=== PATIENT | female | born 1955 | race Caucasian/White ===

== ENCOUNTER → 2016-09-02 | Outpatient (CLI) | payer OTHER ==
[~2016-09-02] MED LIST: TYLENOL; TYLENOL #3; VICO5TAB; aleve
--- NOTE | 2016-09-02 14:19 | REPMRS ---
Patient History The patient states she had a clinical breast exam in 08/2016. No known family history of cancer. Taking estrogen for 1 year. Digital Woman Screen Mammo: September 02, 2016 - Exam #: [id number] Bilateral CC and MLO view(s) were taken. Technologist: Ysabel Escobar, Technologist Prior study comparison: August 31, 2015, digital woman screen mammo performed at [facility]. 2006, bilateral mammogram performed at [facility]. FINDINGS: There are scattered fibroglandular densities. There has been no change in the appearance of the mammogram from the prior studies. There is a mild amount of residual fibroglandular tissue which is fairly symmetric. There is no interval development of dominant mass, architectural distortion, or clustered microcalcification suggestive of malignancy. ASSESSMENT: BI-RADS/ACR category 1 mammogram. Negative. Recommendation Routine screening mammogram in 1 year (for women over age 40). This mammogram was interpreted with the aid of an FDA-approved computer-aided dectection system. Electronically Signed By: Dannie Torres MD 09/02/16 [id number]
== END ==
LOC: M WHC 13:03
PROVIDERS: ATTEND Nurse Practitioner Family
DX: Z12.31 Encounter for screening mammogram for malignant neoplasm of breast (principal); Z92.23 Personal history of estrogen therapy

== ENCOUNTER → 2017-09-10 | Outpatient (CLI) | payer OTHER | LOC: M WHC 12:48 | DX: Z12.31 Encounter for screening mammogram for malignant neoplasm of breast (principal) | CPT/HCPCS: 77067 ==

== ENCOUNTER → 2018-09-11 | Outpatient (CLI) | payer OTHER ==
--- NOTE | 2018-09-11 14:36 | REP ---
BILATERAL SCREENING DIGITAL MAMMOGRAM WITH 3D TOMOSYNTHESIS: There are no palpable abnormalities or other breast complaints. The the patient states she had a clinical breast examination September 03, 2018 The the patient states she performs self-breast examinations 12 times per year. The patient has a family history of breast cancer in two maternal cousins at age 50 or over, and in a niece at stage 38. The Tyrer-Cuzick Score is: 9.4% . Comparison is 2015. There are scattered areas of fibroglandular density. There is no dominant mass, micro calcific cluster or architectural distortion that would indicate malignancy. There are no additional findings on 3D tomosynthesiss. There is no change from the prior study. Impression: BIRADS/ACR category 1 mammogram. Negative. Recommendation: Routine annual screening mammography. This mammogram was interpreted with the aid of a FDA approved computer-aided detection system. A. Negative mammogram reports should not delay biopsy if a dominant or clinically suspicious mass is present. B. Not all breast cancers are identified by mammography or tomosynthesis. C. Adenosis and dense breasts may obscure an underlying neoplasm. Patient letter M1. Electronically Signed by Dannie Pacheco MD 09/11/2018 02:28 P
== END ==
LOC: M WHC 13:14
PROVIDERS: ATTEND Nurse Practitioner Family
DX: Z12.31 Encounter for screening mammogram for malignant neoplasm of breast (principal)

== ENCOUNTER → 2019-09-14 | Outpatient (CLI) | payer OTHER ==
--- NOTE | 2019-09-14 14:44 | REPMRS ---
Patient History The patient states she had a clinical breast exam in August 2019.Family history of breast cancer at age 50 or over in maternal cousin, breast cancer at age 38 in niece, breast cancer at age 50 or over in maternal cousin, colorectal cancer at age 50 or over in maternal cousin. Took estrogen for 3 years. Digital Woman Screen Mammo: September 14, 2019 - Exam #: [id number] Bilateral CC and MLO view(s) were taken. Technologist: Liliya Ortega, Technologist Prior study comparison: September 11, 2018, bilateral digital woman screen mammo performed at [facility]. September 10, 2017, bilateral digital woman screen mammo performed at [facility]. September 02, 2016, digital woman screen mammo performed at [facility]. FINDINGS: The breast tissue is almost entirely fat. The Volpara volumetric breast density category is: A. There has been no change in the appearance of the mammogram from the prior studies. There is no interval development of dominant mass, architectural distortion, or grouped microcalcification typical of malignancy. 3-D tomosynthesis shows no additional findings. Assessment: BI-RADS/ACR category 1 mammogram. Negative Mammogram. Recommendation Routine screening mammogram of both breasts in 1 year (for women over age 40). This patient's Lifetime Breast Cancer RIsk is estimated at 9.0 %. This mammogram was interpreted with the aid of an FDA-approved computer-aided dectection system. Electronically Signed By: Earnest Garcia MD 09/14/19 [id number]
== END ==
LOC: M WHC 13:37
PROVIDERS: ATTEND Nurse Practitioner Family
DX: Z12.31 Encounter for screening mammogram for malignant neoplasm of breast (principal); Z80.3 Family history of malignant neoplasm of breast; Z80.0 Family history of malignant neoplasm of digestive organs

== ENCOUNTER → 2020-09-14 | Outpatient (CLI) | payer MEDICARE, OTHER ==
--- NOTE | 2020-09-14 12:27 | REPMRS ---
Patient History The patient states she had a clinical breast exam in 09/2020. Family history of breast cancer at age 50 or over in maternal cousin, breast cancer at age 38 in niece, breast cancer at age 50 or over in maternal cousin, colorectal cancer at age 50 or over in maternal cousin. Took estrogen for 3 years. Patient states no breast complaints today. Patient has signed MRS History Sheet. Digital Woman Screen Mammo: September 14, 2020 - Exam #: [id number] Bilateral CC and MLO view(s) were taken. Technologist: Ysabel Escobar, Technologist Prior study comparison: September 14, 2019, bilateral digital woman screen mammo performed at [facility]. September 11, 2018, bilateral digital woman screen mammo performed at [facility]. September 10, 2017, bilateral digital woman screen mammo performed at [facility]. FINDINGS: The breast tissue is almost entirely fat. The Volpara volumetric breast density category is: A. There has been no change in the appearance of the mammogram from the prior studies. There is no interval development of dominant mass, architectural distortion, or grouped microcalcification typical of malignancy. 3-D tomosynthesis shows no additional findings. Assessment: BI-RADS/ACR category 1 mammogram. Negative Mammogram. Recommendation Routine screening mammogram of both breasts in 1 year (for women over age 40). This patient's [facility] Lifetime Breast Cancer RIsk is estimated at 8.6 %. This mammogram was interpreted with the aid of an FDA-approved computer-aided dectection system. Electronically Signed By: Earnest Garcia MD 09/14/20 [id number]
== END ==
LOC: M WHC 10:56
PROVIDERS: ATTEND Nurse Practitioner Women's Health
DX: Z12.31 Encounter for screening mammogram for malignant neoplasm of breast (principal)

== ENCOUNTER → 2020-10-06 | Outpatient (CLI) | payer MEDICARE, OTHER ==
--- NOTE | 2020-10-06 09:11 | REP ---
INDICATION: R10.2 PELVIC PAIN. COMPARISON: 12/24/2007. TECHNIQUE: Transabdominal and transvaginal scanning performed. FINDINGS: The bladder measures 6.6 x 5.6 x 6.5cm. The uterus and left ovary have been surgically removed. The right ovary could not be visualized. There is no adnexal mass identified. No free fluid is seen in the cul-de-sac. IMPRESSION: Negative pelvic ultrasound. Prior hysterectomy and left oophorectomy. <Electronically signed by Dannie Torres > 10/06/20 [id number]
== END ==
LOC: M WHC 06:12
PROVIDERS: ATTEND Nurse Practitioner Women's Health
DX: R10.2 Pelvic and perineal pain (principal)

== ENCOUNTER → 2021-09-25 | Outpatient (CLI) | payer MEDICARE, OTHER | LOC: M WHC 13:21 | PROVIDERS: ATTEND Advanced Practice Midwife | DX: Z01.419 Encounter for gynecological examination (general) (routine) without abnormal findings (principal); Z12.31 Encounter for screening mammogram for malignant neoplasm of breast; Z85.89 Personal history of malignant neoplasm of other organs and systems; Z92.23 Personal history of estrogen therapy | CPT/HCPCS: 77063; 77067; G0101 ==

== ENCOUNTER → 2021-09-25 | Outpatient (CLI) | payer MEDICARE, OTHER | LOC: M WHC 07:57 | PROVIDERS: ATTEND Advanced Practice Midwife | DX: Z12.31 Encounter for screening mammogram for malignant neoplasm of breast (principal) ==